=== PATIENT | female | born 1970 | race Caucasian/White ===

== ENCOUNTER → 2018-12-28 | Outpatient (CLI) | payer BC ==
--- NOTE | 2018-12-29 14:03 | MM ---
Reason for exam: screening (asymptomatic). Last mammogram was performed 7 years and 7 months ago. History: Family history of breast cancer in paternal cousin. Took hormonal contraceptives for 15 years beginning at age 20. Physical Findings: A clinical breast exam by your physician is recommended on an annual basis and results should be correlated with mammographic findings. MG Screening Mammo w CAD Bilateral CC and MLO view(s) were taken. Prior study comparison: May 22, 2011, CAD bilateral diagnostic mammogram. January 26, 2007, mammogram, performed at [facility]. The breast tissue is heterogeneously dense. This may lower the sensitivity of mammography. There are benign appearing scattered bilateral calcifications. No suspicious abnormality. No significant changes when compared with prior studies. ASSESSMENT: Benign, BI-RAD 2 RECOMMENDATION: Routine screening mammogram of both breasts in 1 year.
== END | disposition home or self-care (01) ==
LOC: RADMAMWWP 08:53
PROVIDERS: ATTEND Obstetrics & Gynecology
DX: Z12.31 Encounter for screening mammogram for malignant neoplasm of breast (principal)
CPT/HCPCS: 77067

== ENCOUNTER → 2021-05-01 | Outpatient (CLI) | payer BC | END | disposition home or self-care (01) | LOC: LABWHC1 11:44 | PROVIDERS: ATTEND Family Medicine | DX: Z20.822 Contact with and (suspected) exposure to COVID-19 (principal); R05.1 Acute cough | CPT/HCPCS: U0003; C9803; U0005 ==

== ENCOUNTER → 2023-06-24 | Outpatient (CLI) | payer BC ==
--- NOTE | 2023-06-25 19:13 | MM ---
Reason for Exam: Screening (asymptomatic). Last mammogram was performed 4 year(s) and 6 month(s) ago. Patient History: Menarche at age 13. First Full-Term at age 24. Postmenopausal. Patient has history of breast feeding. Hormonal Contraceptives for 15 years from age 20 until age 35. Paternal cousin had breast cancer. Risk Values: Carmen 5 year model risk: 0.9%. NCI Lifetime model risk: 7.8%. Prior Study Comparison: 01/26/2007 Screening Mammogram, [facility]. 05/22/2011 Bilateral Diagnostic Mammogram, [facility]. 12/28/2018 Bilateral Screening Mammogram, [facility]. Tissue Density: The breast tissue is heterogeneously dense. This may lower the sensitivity of mammography. Findings: Analyzed By CAD. There is no suspicious group of microcalcifications or new suspicious mass in either breast. Overall Assessment: Negative, BI-RAD 1 Management: Screening Mammogram of both breasts in 1 year. . Patient should continue monthly self-breast exams. A clinical breast exam by your physician is recommended on an annual basis. This exam should not preclude additional follow-up of suspicious palpable abnormalities. Note on Carmen scores and lifetime risk: 1. A Carmen score greater than 3% is considered moderate risk. If this is the case, consider specialist referral to assess eligibility for a risk reducing agent. 2. If overall lifetime risk for the development of breast cancer is 20% or higher, the patient may qualify for future screening with alternating mammogram and breast MRI. Electronically signed and approved by: Ray Black M.D. Radiologist
== END | disposition home or self-care (01) ==
LOC: RADMAMWWP 11:14
PROVIDERS: ATTEND Obstetrics & Gynecology
DX: Z12.31 Encounter for screening mammogram for malignant neoplasm of breast (principal); Z78.0 Asymptomatic menopausal state; Z80.3 Family history of malignant neoplasm of breast
CPT/HCPCS: 77063; 77067

== ENCOUNTER → 2024-08-03 | Outpatient (CLI) | payer BC ==
--- NOTE | 2024-08-04 08:02 | MM ---
Reason for Exam: Screening (asymptomatic). Last mammogram was performed 1 year(s) and 2 month(s) ago. Patient History: Menarche at age 13. First Full-Term at age 24. Postmenopausal. Patient has history of breast feeding. Hormonal Contraceptives for 15 years from age 20 until age 35. Paternal cousin had breast cancer, age 38. Risk Values: Carmen 5 year model risk: 1.0%. NCI Lifetime model risk: 7.7%. Prior Study Comparison: 05/22/2011 Bilateral Diagnostic Mammogram, [facility]. 12/28/2018 Bilateral Screening Mammogram, [facility]. 06/24/2023 Bilateral MG 3D screening mammo w/cad, [facility]. Tissue Density: The breasts are heterogeneously dense, which may obscure small masses. Findings: Analyzed By CAD. There is no suspicious group of microcalcifications or new suspicious mass in either breast. Overall Assessment: Negative, BI-RAD 1 Management: Screening Mammogram of both breasts in 1 year. Patient should continue monthly self-breast exams. A clinical breast exam by your physician is recommended on an annual basis. This exam should not preclude additional follow-up of suspicious palpable abnormalities. Note on Carmen scores and lifetime risk: 1. A Carmen score greater than 3% is considered moderate risk. If this is the case, consider specialist referral to assess eligibility for a risk reducing agent. 2. If overall lifetime risk for the development of breast cancer is 20% or higher, the patient may qualify for future screening with alternating mammogram and breast MRI. [facility], , 08/04/2024 7:58 AM. Electronically signed and approved by: Ray Black M.D. Radiologist
== END | disposition home or self-care (01) ==
LOC: RADMAMWWP 16:17
PROVIDERS: ATTEND Obstetrics & Gynecology
DX: Z12.31 Encounter for screening mammogram for malignant neoplasm of breast (principal); R92.333 Mammographic heterogeneous density, bilateral breasts; Z78.0 Asymptomatic menopausal state; Z92.0 Personal history of contraception; Z80.3 Family history of malignant neoplasm of breast
CPT/HCPCS: 77063; 77067